=== PATIENT | male | born 1985 | race African-American/Black ===

== ENCOUNTER 2021-08-09 11:21 | Emergency (ER) | payer OTHER ==
[2021-08-09] MEDS ORDERED: Ondansetron 4 MG/2 ML SDV IVPUSH ONE (12:07)
[2021-08-09] MEDS ORDERED: HYDROmorphone 1 MG/ML Syringe IVPUSH ONE (12:07)
[2021-08-09] MEDS ORDERED: HYDROmorphone 1 MG/ML Syringe IM ONE (12:52)
== END 2021-08-09 14:02 | disposition home or self-care (01) ==
LOC: MW.ED 11:21
DX: S82.852A Displaced trimalleolar fracture of left lower leg, initial encounter for closed fracture (principal); W00.0XXA Fall on same level due to ice and snow, initial encounter
CPT/HCPCS: 27818; 73610; 99283; J1170; 27840; 99284